=== PATIENT | female | born 1995 | race Caucasian/White ===

== ENCOUNTER 2018-12-03 18:20 | Emergency (ER) | payer OTHER ==
[~2018-12-03] VITALS: Ht 166.4 cm; Wt 59.9 kg
[2018-12-03 18:29] VITALS: BP 144/88
== END 2018-12-03 19:50 | disposition home or self-care (01) ==
LOC: ER 18:25
DX: S16.1XXA Strain of muscle, fascia and tendon at neck level, initial encounter (principal); Z90.89 Acquired absence of other organs; V49.49XA Driver injured in collision with other motor vehicles in traffic accident, initial encounter; Y93.89 Activity, other specified; Y92.413 State road as the place of occurrence of the external cause; Y99.8 Other external cause status